=== PATIENT | female | born 1970 | race Caucasian/White ===

== ENCOUNTER 2016-05-20 20:23 | Emergency (ER) | payer BC ==
[~2016-05-20] VITALS: Ht 165.1 cm; Wt 86.6 kg
[2016-05-20 20:36] VITALS: BP 160/116; PULSE 115; RESP 18; TEMP 98.7; O2SAT 96
[2016-05-20] MEDS ORDERED: KETOROLAC TROMETHAMINE 60 MG/2 ML (IM) VIAL IM ONE (21:00)
[2016-05-20 21:09] VITALS: BP 200/110; PULSE 116; RESP 20
--- NOTE | 2016-05-20 21:58 | PD ---
HPI Chief Complaint: Respiratory Symptoms Time Seen by Provider: 20:49 Travel History International Travel<30 days: No Contact w/Intl Traveler<30days: No Traveled to known affect area: No History of Present Illness HPI Patient is a 45-year-old female who comes in complaining of cough and fever for the past week. She says she has had a fever on and off, last fever was yesterday was 102. She last took ibuprofen this morning. She says she has had body aches, she is coughing up phlegm, she has had sore throat and ear pain. She denies any shortness of breath. She says she feels some pain in her chest only when coughing. She denies any pain or swelling to her legs. [facility] Past Medical History Medical History: Denies Significant Hx Diminished Hearing: No Musculoskeletal: Yes (screws to her lower leg:post injury ) Tetanus Vaccination: > 5 Years Influenza Vaccination: No ?: Not Tubal Ligation: Yes Past Surgical History Other Surgery: Yes (RIGHT ANKLE) Social History Alcohol Use: Yes (VERY RARE) Tobacco Use: Yes (1 DAY) Substance Use: No Allergies-Medications (Allergen,Severity, Reaction): Coded Allergies: No Known Allergies (Verified , 02/25/16) Reported Meds & Prescriptions Reported Meds & Active Scripts Active No Active Prescriptions or Reported Medications Review of Systems General / Constitutional: Positive: Fever HENT: Positive: Sore Throat, Congestion, No: Headaches, Lightheadedness Cardiovascular: No: Chest Pain or Discomfort Respiratory: Positive: Cough, No: Shortness of Breath Gastrointestinal: No: Abdominal Pain Musculoskeletal: Positive: Myalgias, No: Edema Skin: No Rash, No Change in Pigmentation Neurologic: No: Weakness, Dizziness Physical Exam Narrative GENERAL: Awake and alert, in no acute distress. SKIN: Warm and dry. HEAD: Atraumatic. Normocephalic. EYES: Pupils equal and round. No scleral icterus. ENT: Mucous membranes pink and moist. No tonsillar swelling or exudates. TMs are nonerythematous with positive light reflex. CARDIOVASCULAR: Regular rate and rhythm. No murmur appreciated. RESPIRATORY: No accessory muscle use. Clear to auscultation. Breath sounds equal bilaterally. MUSCULOSKELETAL: No obvious deformities. No clubbing. No cyanosis. No edema. NEUROLOGICAL: Awake and alert. No obvious cranial nerve deficits. Motor grossly within normal limits. Normal speech. Data Data Last Documented VS Vital Signs Date Time Temp Pulse Resp B/P Pulse Ox O2 Delivery O2 Flow Rate FiO2 05/20/16 21:09 116 20 200/110 05/20/16 20:36 98.7 96 Orders Ed Urine Pregnancytest Poc (05/20/16 20:57) Chest, Pa & Lat (05/20/16 ) Influenzae A/B Antigen (05/20/16 20:57) Ketorolac Inj (Toradol Inj) (05/20/16 21:00) MDM Medical Decision Making Medical Screen Exam Complete: Yes Emergency Medical Condition: Yes Medical Record Reviewed: Yes Differential Diagnosis Influenza versus URI versus bronchitis versus pneumonia Narrative Course Patient is a 45-year-old female comes in complaining of cough and fever. Exam shows no acute abnormalities. Patient is found to be hypertensive at triage. She reports no chest pain, and says that she is under a lot of stress. Swab sent for influenza is negative. Chest x-ray performed shows no acute abnormalities. Patient given Toradol for pain, says she is feeling better. We'll discharge with prescription for azithromycin due to duration of symptoms without improvement. He should advised of her high blood pressure and told she needs to follow-up with a primary care doctor for possible treatment. Advised to return to the ED at any time for any worsening symptoms. Diagnosis Primary Impression: Bronchitis Patient Instructions: Acute Bronchitis (ED), General Instructions, Hypertension (ED) Additional Instructions: Your blood pressure is high today, you need to follow up with a primary doctor as soon as possible to take care of this. Take all of your antibiotics. Return to the ED as needed for any worsening symptoms. Scripts Azithromycin (Zithromax Z-Bautista)250 Mg [id number] Mg PO DIRECTED #1 DSPK Ref 0 500 MG (2 tabs) day 1, then 1 tab days 2-5. Prov:Leslie Leigh MD 05/20/16 Disposition: 01 DISCHARGE HOME Condition: Stable Leslie Leigh MD May 20, 2016 21:58
--- NOTE | 2016-05-20 22:04 | RADHPO ---
EXAM DATE/TIME: 05/20/2016 21:33 [facility] COMPARISON: No previous studies available for comparison. INDICATIONS : Cough and congestion for one week. MEDICAL HISTORY : None. SURGICAL HISTORY : None. ENCOUNTER: Initial ACUITY: 1 week PAIN SCORE: 2/10 LOCATION: Bilateral chest FINDINGS: PA and lateral views of the chest demonstrate the lungs to be symmetrically aerated without evidence of mass, infiltrate or effusion. The cardiomediastinal contours are unremarkable. Osseous structure s are intact. CONCLUSION: No acute disease. Lorenzo Clay MD on May 20, 2016 at 22:01 Board Certified Radiologist. This report was verified electronically.
[2016-05-20] MEDS ORDERED: ZITHTAB PO (22:11)
== END 2016-05-20 22:20 | disposition home or self-care (01) ==
LOC: PHED 20:23 → PHEFT 22:20
DX: J40 Bronchitis, not specified as acute or chronic (principal); F17.200 Nicotine dependence, unspecified, uncomplicated
CPT/HCPCS: 71020; 84703; 87804; 96372; 99283; J1885